=== PATIENT | male | born 1960 | race Caucasian/White ===

== ENCOUNTER 2018-03-13 17:51 | Emergency (ER) | payer MEDICAID ==
[~2018-03-13] VITALS: Ht 182.9 cm; Wt 72.7 kg
[2018-03-13 18:18] VITALS: Ht 182.9 cm; Wt 72.7 kg
[2018-03-13] MEDS ORDERED: ZESTRIL40 MG PO (18:20)
[2018-03-13] MEDS ORDERED: COREG 3.1253.125 MG (18:20)
[2018-03-13] MEDS ORDERED: NORVASC10 MG PO (18:21)
[2018-03-13 19:50] LABS: BASOPHILS 0.4 % (0-2); EOSINOPHILS 1.6 % (0-7); HEMATOCRIT 39.5 % (42.0-54.0); HEMOGLOBIN 14.5 g/dL (13.5-17.5); IMMATURE GRANULOCYTES 0.2 % (0-5); LYMPHOCYTES 39.4 % (15-50); MCH 30.8 pg (26.0-34.0); MCHC 36.7 g/dL (31.0-37.0); MCV 83.9 fL (80.0-100.0); MEAN PLATELET VOLUME 9.5 fL (7.4-10.4); MONOCYTES 7.5 % (2-11); NEUTROPHILS 50.9 % (40-80); PLATELET COUNT 170 10x3/uL (130-400); RBC 4.71 10x6/uL (4.20-6.10); RDW 12.5 % (11.5-14.5); WBC 5.6 10x3/uL (4.8-10.8)
[2018-03-13 19:57] LABS: PROTIME 12.8 SECONDS (11.6-15.0)
[2018-03-13 19:58] LABS: APTT 26.7 SECONDS (22.8-39.4)
[2018-03-13 20:18] LABS: ALBUMIN 4.1 g/dL (3.4-5.0); ALKALINE PHOSPHATASE 63 U/L (46-116); ALT (SGPT) 38 U/L (10-68); BILIRUBIN - TOTAL 0.84 mg/dL (0.2-1.3); CALC OSMOLALITY 262 mosm/kg (275-300); CALCIUM 9.6 mg/dL (8.5-10.1); CARBON DIOXIDE 30.6 mmol/L (21.0-32.0); CHLORIDE - SERUM 91 mmol/L (98-107); CREATININE - SERUM 1.2 mg/dL (0.6-1.3); GLUCOSE 87 mg/dL (74-106); PROTEIN - SERUM 7.2 g/dL (6.4-8.2); SODIUM 131 mmol/L (136-145); UREA NITROGEN 15 mg/dL (7-18); eGFR NON AFRICAN AMERICAN 66 mL/min (90-120)
[2018-03-13 20:29] LABS: CKMB 1.2 U/L (0.0-3.6); CREATINE KINASE 85 UL (21-232); PRO BNP 234 pg/mL (0-125)
[2018-03-13 20:30] LABS: TROPONIN-I < 0.017 ng/mL (0.000-0.060)
[2018-03-13] MEDS ORDERED: OMEPRAZOLE40 MG PO (21:58)
[2018-03-13 22:21] VITALS: BP 155/94
== END 2018-03-13 22:22 | disposition home or self-care (01) ==
LOC: D.ER 17:51
PROVIDERS: Family Medicine
DX: R07.9 Chest pain, unspecified (principal); K21.9 Gastro-esophageal reflux disease without esophagitis; I10 Essential (primary) hypertension; F17.200 Nicotine dependence, unspecified, uncomplicated